=== PATIENT | male | born 1990 | race Caucasian/White ===

== ENCOUNTER 2019-10-09 22:39 | Emergency (ER) | payer BC ==
[~2019-10-09] VITALS: Ht 180.3 cm; Wt 90.7 kg
[2019-10-09] MEDS ORDERED: AMOXicillin 250 MG CAPSULE ONE (23:08)
--- NOTE | 2019-10-09 23:13 | NUR ---
Patient discharged to home in stable condition. Written and verbal after care instructions given. Patient verbalizes understanding of instructions. Stressed follow up or return to ER for worsening s/s.
[2019-10-09 23:15] VITALS: BP 140/88
[2019-10-09] MEDS ORDERED: AMOXicillin 250 MG CAPSULE PO ONE (23:15)
[2019-10-10] MEDS ORDERED: AMOX500C2 PO (20:56)
== END 2019-10-09 23:15 | disposition home or self-care (01) ==
LOC: ER 22:45
DX: H66.91 Otitis media, unspecified, right ear (principal)
CPT/HCPCS: A4663

== ENCOUNTER 2019-10-10 20:44 | Emergency (ER) | payer BC ==
[~2019-10-10] VITALS: Ht 185.4 cm; Wt 90.7 kg
[2019-10-10] MEDS ORDERED: AMOX500C2 PO (20:56)
--- NOTE | 2019-10-10 21:27 | NUR ---
Dr. Marie at bedside for MSE
[2019-10-10] MEDS ORDERED: ONDANSETRON ODT 4 MG TAB.RAPDIS SL ONE (21:45)
[2019-10-10] MEDS ORDERED: LOPERAMIDE HCL 2 MG CAPSULE PO ONE (21:45)
[2019-10-10] MEDS ORDERED: LOPERAMIDE HCL 2 MG CAPSULE ONE (21:46)
[2019-10-10] MEDS ORDERED: ONDANSETRON ODT 4 MG TAB.RAPDIS ONE (21:46)
--- NOTE | 2019-10-10 21:49 | NUR ---
Patient discharged to home in stable condition. Written and verbal after care instructions given. Patient verbalizes understanding of instructions. Stressed follow up or return to ER for worsening s/s. a/ox4. able to speak in complete sentences respirations even and unlabored no s/s of distress ambulatory with steady gait all belongings with pt
[2019-10-10 21:51] VITALS: BP 117/74
== END 2019-10-10 21:50 | disposition home or self-care (01) ==
LOC: ER 20:48
DX: H65.02 Acute serous otitis media, left ear (principal); R19.7 Diarrhea, unspecified; R21 Rash and other nonspecific skin eruption
CPT/HCPCS: A4663; Q0162

== ENCOUNTER 2019-11-18 11:00 | Emergency (ER) | payer SELFPAY ==
[~2019-11-18] VITALS: Ht 185.4 cm; Wt 90.7 kg
[~2019-11-18 11:00] MED LIST: AMOX500C2 PO
--- NOTE | 2019-11-18 12:00 | NUR ---
patient was seen by . He is A/A/O x3 in no distress. DC, RX AND FOLLOW UP INSTRUCTIONS GIVEN AND EXPLAINED TO PATIENT WHO STATES HE UNDERSTANDS ALL INSTRUCTIONS.
== END 2019-11-18 12:02 | disposition home or self-care (01) ==
LOC: ER 11:00
DX: J30.2 Other seasonal allergic rhinitis (principal); M62.838 Other muscle spasm
CPT/HCPCS: A4663

== ENCOUNTER 2022-03-17 11:45 | Emergency (ER) | payer BC ==
[~2022-03-17] VITALS: Ht 185.4 cm; Wt 90.7 kg
[~2022-03-17 11:45] MED LIST changes: +ACET-3478 PO; +CYCL5TAB PO; +IBUP-1953 PO
[2022-03-17] MEDS ORDERED: DEXAMETHASONE SOD PHOSPHATE 4 MG INJ IM ONE (12:00)
[2022-03-17] MEDS ORDERED: KETOROLAC TROMETHAMINE 15 MG INJ IM ONE (12:00)
[2022-03-17] MEDS ORDERED: LIDOCAINE VISCUS 2% 15 ML UDC MM ONE (12:15)
[2022-03-17] MEDS ORDERED: LIDOCAINE VISCUS 2% 15 ML UDC ONE (12:26)
[2022-03-17] MEDS ORDERED: DEXAMETHASONE SOD PHOSPHATE 10 MG INJ ONE (12:26)
[2022-03-17] MEDS ORDERED: KETOROLAC TROMETHAMINE 15 MG INJ ONE (12:27)
--- NOTE | 2022-03-17 13:57 | NUR ---
Gave pt RX and d/c instructions, pt verbalized understanding.
== END 2022-03-17 13:59 | disposition home or self-care (01) ==
LOC: ER 11:45
DX: J02.9 Acute pharyngitis, unspecified (principal); Z20.822 Contact with and (suspected) exposure to COVID-19
CPT/HCPCS: 99284; 87426; 86403; 87400; 96372 ×2; 87081; J1100; J1885; A4663